=== PATIENT | male | born 1985 | race Caucasian/White ===

== ENCOUNTER 2016-10-08 07:50 | Day surgery (SDC) | payer OTHER ==
[2016-10-08] MEDS ORDERED: LIDOCAINE 1% 2 ML INJ ONE (09:04)
[2016-10-08] MEDS ORDERED: LR 1,000 ML IV ONE (09:06)
--- NOTE | 2016-10-08 09:07 | PDGENHP ---
History & Physical Chief Complaint: nausea, chronic diarrhea History of Present Illness: Nausea worse in the morning, epigastric pain, chronic diarrhea. Relevant Physical Exam: GEN: NAD. Cardiac: RRR. Lungs: CTA B. Abd: soft, nt, nd
--- NOTE | 2016-10-08 09:21 | PDANEPAE ---
ANE History of Present Illness 31 yo M here for EGD/COLO, h/o GERD ANE Past Medical History - Cardiovascular History Hx Hypertension: Yes Hx Arrhythmias: No Hx Chest Pain: No Hx Coronary Artery / Peripheral Vascular Disease: No Hx CHF / Valvular Disease: No Hx Palpitations: No - Pulmonary History Hx COPD: No Hx Asthma/Reactive Airway Disease: No Hx Recent Upper Respiratory Infection: No Hx Oxygen in Use at Home: No - Neurologic History Hx Cerebrovascular Accident: No Hx Seizures: No Hx Dementia: No - Endocrine History Hx Diabetes: No - Renal History Hx Renal Disorders: No - Liver History Hx Hepatic Disorders: No - Neurological & Psychiatric Hx Hx Neurological and Psychiatric Disorders: No - Cancer History Hx Cancer: No - Congenital Disorder History Hx Congenital Disorders: No - GI History Hx Gastrointestinal Disorders: Yes - Chronic Pain History Chronic Pain: No ANE Review of Systems Review of systems is: negative - Exercise capacity Exercise capacity: >=4 METS METS (RN): 4 METS ANE Patient History - Allergies Allergies/Adverse Reactions: No Known Allergies Allergy (Unverified 09/23/16 18:43) - Home Medications Home medications: home medication list seen and reviewed Home Medications: Amlodipine Besylate 09/23/16 [Last Taken 10/08/16 03:00] Lisinopril 09/23/16 [Last Taken 10/08/16] Omeprazole 09/23/16 [Last Taken 10/07/16] - NPO status NPO Since - Liquids (Date): 10/07/16 NPO Since - Solids (Date): 10/07/16 - Anes Hx Anes Hx: no prior problems - Smoking Hx Smoking Status: Heavy smoker (>10 pack-years) Marijuana use: Yes - Alcohol Use Alcohol Use: Heavy - Family Anes Hx Family Anes Hx: none Family Hx Anesthesia Complications: NEG ANE Labs/Vital Signs - Vital Signs Height: 172.72 cm Weight: 75.75 kg ANE Physical Exam - Airway Neck exam: FROM Mallampati Score: Class 2 Mouth exam: normal dental/mouth exam - Pulmonary Pulmonary: no respiratory distress, clear to auscultation - Cardiovascular Cardiovascular: regular rate and rhythym, no murmur, rub, or gallop - ASA Status ASA Status: II ANE Anesthesia Plan Anesthesia Plan: MAC
[2016-10-08] MEDS ORDERED: PROPOFOL/EMULSION 500 MG/50 ML BOTTLE IV ONE (09:29)
[2016-10-08] MEDS ORDERED: PROMETHAZINE HCL 25 MG/ML INJ IVP PRN (10:01)
[2016-10-08] MEDS ORDERED: ONDANSETRON 4 MG/2 ML VIAL IVP PRN (10:01)
[2016-10-08] MEDS ORDERED: ACETAMINOPHEN 500 MG TAB PO PRN (10:01)
[2016-10-08] MEDS ORDERED: NALOXONE HCL 0.4 MG/ML INJ IVP PRN (10:01)
[2016-10-08 10:25] VITALS: TEMP 97.7
[2016-10-08 11:29] VITALS: BP 116/78; PULSE 68; RESP 16; O2SAT 98
--- NOTE | 2016-10-08 13:48 | POSTANESTH ---
Post Anesthetic Evaluation Cardiovascular Status: Normal, Stable, Similar to Pre-Op Cond Respiratory Status: Normal, Stable, Similar to Pre-op Cond. Level of Consciousness/Mental Status: Can Participate in Eval, Alert and Oriented Pain Control: Adequate, Prn Tx Ordered Nausea/Vomiting Control: Adequate, Prn Tx Ordered Complications Possibly Related to Anesthesia: None Noted
--- NOTE | 2016-10-08 17:01 | GPN ---
[f rep st] PROCEDURE NOTE Corrected report DATE OF PROCEDURE: 10/08/2016 PREPROCEDURE DIAGNOSIS: Nausea, vomiting, left lower quadrant abdominal pain, epigastric pain, and chronic diarrhea. POSTPROCEDURE DIAGNOSIS: Mild gastritis, normal duodenum, normal colonoscopy. PROCEDURE: 1. Esophagogastroduodenoscopy with biopsy. 2. Colonoscopy with biopsies. MEDICATIONS: Monitored anesthesia care. INDICATIONS: 31-year-old gentleman with history of nausea, vomiting, epigastric abdominal pain, left lower quadrant abdominal pain, and chronic diarrhea, who is presenting for upper endoscopy and colonoscopy. The risks and the benefits of the procedure were discussed with the patient. Consent obtained. Risks include, but not limited to, bleeding, perforation, sedation. The patient is ASA class 2. DESCRIPTION OF PROCEDURE: The end-viewing endoscope was inserted into the esophagus, into stomach and second portion of the duodenum. The esophagus appears normal. The GE junction is located at 40 cm from the incisors. The stomach shows mild diffuse erythema. Status post biopsy using cold biopsy forceps to evaluate for Helicobacter pylori. The duodenum and second portion are normal. Biopsies were taken using cold biopsy forceps to evaluate for celiac disease. Next, the patient was repositioned and the adult colonoscope was advanced into the terminal ileum, which appears normal. The entire colon appears normal including retroflexed views in the rectum. Random biopsies were taken for microscopic colitis. IMPRESSION: 1. Erythematous gastric mucosa, consistent with mild gastritis, status post biopsy. 2. Normal duodenum, status post biopsies. 3. Normal terminal ileum. 4. Normal colonoscopy, status post biopsies for microscopic colitis. RECOMMENDATIONS: 1. Advance diet as tolerated. 2. Discharge to home with escort. 3. Follow up final biopsy results. Results available within 10 days. 4. Follow up in our GI clinic as previously scheduled with Lashay Das. 5. Repeat screening colonoscopy at age 49. Thank you for allowing me to participate in the care of your patient. Please do not hesitate to call with questions. /[id number]/MODL Priscila worktype, 10/11/16, madiha ARDON
== END 2016-10-08 11:37 | disposition home or self-care (01) ==
LOC: FSGY 07:50
PROVIDERS: ATTEND Internal Medicine Gastroenterology
PROC: 0DB98ZX Excision of Duodenum, Via Natural or Artificial Opening Endoscopic, Diagnostic (ICD-10-PCS; principal; 2016-10-08 09:30)
PROC: 0DB68ZX Excision of Stomach, Via Natural or Artificial Opening Endoscopic, Diagnostic (ICD-10-PCS; principal; 2016-10-08 09:30)
PROC: 0DBE8ZX Excision of Large Intestine, Via Natural or Artificial Opening Endoscopic, Diagnostic (ICD-10-PCS; principal; 2016-10-08 09:30)
DX: R11.2 Nausea with vomiting, unspecified (principal); R19.7 Diarrhea, unspecified; R10.13 Epigastric pain; R10.32 Left lower quadrant pain; K31.89 Other diseases of stomach and duodenum; F17.210 Nicotine dependence, cigarettes, uncomplicated
CPT/HCPCS: J2704